=== PATIENT | male | born 2000 | race Caucasian/White ===

== ENCOUNTER 2021-03-10 18:57 | Emergency (ER) | payer SELFPAY ==
[2021-03-10 19:23] VITALS: BP 118/78; PULSE 97; RESP 18; TEMP 37.3; O2SAT 99
--- NOTE | 2021-03-10 22:19 | PC.NURSE ---
Pt's father presented to the nurses desk asking how long until the patient gets seen because he has been sitting in the waiting room for three hours and hasn't had a chest x-ray yet. RN apologized for the wait, and explained that a physician must order the chest x-ray, and waiting for a room is waiting to see the physician for an assessment. Pt's father agitated at the wait time, states he will go to another hospital. RN explained that it will not be long until the patient gets an ER room available, as he has now been waiting the longest. Pt's father again states that [place]. RN also explained that many emergency departments are overcrowded during this time, and reminded him that it will not be much longer, as he has now been waiting the longest. Pt's father went and sat down. Pt and patient's father then walked out the door approximately five minutes later. As they were walking out, pt's father yelled out, take him off the list, we're leaving! Pt appeared in no acute distress as he was walking out, respirations appeared unlabored.
== END 2021-03-10 22:19 | disposition left against medical advice (07) ==
DX: R06.02 Shortness of breath (principal)
CPT/HCPCS: 99199

== ENCOUNTER 2021-03-11 14:50 | Outpatient (CLI) | payer OTHER, SELFPAY ==
[2021-03-11 15:43] LABS: SARS-CoV-2 Ag Negative (Negative)
== END 2021-03-11 14:51 | disposition home or self-care (01) ==
LOC: CHSLAB 14:57
DX: Z20.822 Contact with and (suspected) exposure to COVID-19 (principal)
CPT/HCPCS: 87426; C9803

== ENCOUNTER 2023-10-23 13:35 | Emergency (ER) | payer BC, SELFPAY ==
--- NOTE | ~2023-10-23 | XR_ITS ---
EXAMINATION: XR ankle LT min 3V, XR foot LT min 3V DATE: 10/23/2023 16:01 INDICATION: Left foot and ankle pain and swelling post injury TECHNIQUE: 1. Anteroposterior, mortise, additional oblique and lateral view of the left ankle were obtained. 2. Dorsoplantar, oblique and lateral views of the left foot were obtained. COMPARISON: None. FINDINGS: Tiny minimally displaced intra-articular fracture at the lateral margin of the base of the left fifth metatarsal. Alignment of the left foot and ankle is otherwise normal. No other fractures identified. Joint spaces are well maintained. No ankle joint effusion. Mild soft tissue swelling dorsum of foot. IMPRESSION: 1. Tiny minimally displaced and rotated fracture through lateral base of the left fifth metatarsal. Reviewed, dictated and finalized at location A. IMPRESSION: 1. Tiny minimally displaced and rotated fracture through lateral base of the le ft fifth metatarsal.
[2023-10-23 14:41] VITALS: BP 132/88; PULSE 93; RESP 16; TEMP 37.1; O2SAT 100
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
[2023-10-23] MEDS: HYDROcodone/acetaminophen (*CRX) 5-325 MG TABLET 1 TAB PO (17:17)
== END 2023-10-23 17:34 | disposition home or self-care (01) ==
PROVIDERS: Emergency Provider Student in an Organized Health Care Education/Training Program
DX: S92.352A Displaced fracture of fifth metatarsal bone, left foot, initial encounter for closed fracture (principal); X58.XXXA Exposure to other specified factors, initial encounter
CPT/HCPCS: 29515; 73610; 73630; 99284; A9270